=== PATIENT | female | born 1985 | race Caucasian/White ===

== ENCOUNTER → 2018-08-24 | Outpatient (CLI) | payer BC ==
[~2018-08-24] MED LIST: BIAXIN 500MG T500 MG PO; GENERESS FE 0.01 CTB PO; NO HOME MEDICATIONS; NORCO 325 MG-51 TAB PO; NORCO 325 MG-7.1 TAB PO; PRENATAL VITAMI1 TA5 PO; SYNTHROID0.075 MG/T PO; ZITHROMAX 250M250 MG PO
== END ==
LOC: COL.RAD 10:58
DX: R94.5 Abnormal results of liver function studies (principal); R10.11 Right upper quadrant pain

== ENCOUNTER → 2020-08-01 | Outpatient (CLI) | payer BC | LOC: ZCOL.LAB 16:13 | DX: J06.9 Acute upper respiratory infection, unspecified (principal); J30.2 Other seasonal allergic rhinitis; Z20.828 Contact with and (suspected) exposure to other viral communicable diseases ==

== ENCOUNTER 2021-09-24 20:23 | Emergency (ER) | payer BC ==
[~2021-09-24] VITALS: Ht 165.1 cm; Wt 104.5 kg
[2021-09-24 21:21] LABS: BASO % 0.1 % (0.0-2.0); EOS % 0.3 % (0-4.0); GRAN # 10.5 K/mm3 (1.4-6.5); GRAN % 87.9 % (42.2-75.2); HEMOGLOBIN 12.7 g/dl (12.5-16.0); MEAN CELL VOLUME 91 fl (80.0-100.0); MEAN CORPUSCULAR HEMOGLOBIN 32 pg (27.0-31.0); MEAN CORPUSCULAR HGB CONC 35 g/dl (33.0-37.0); MEAN PLATELET VOLUME 10.2 fl (7.4-10.4); MONO # 0.4 K/mm3 (0.1-0.6); MONO % 3.3 % (1.7-9.3); PLATELET COUNT 224 K/mm3 (130-400)
[2021-09-24 21:22] LABS: HEMATOCRIT 36.5 % (37.0-47.0)
[2021-09-24 21:41] LABS: CALCIUM 9.2 mg/dL (8.4-10.2); CREATININE, serum 0.85 mg/dL (0.57-1.11); POTASSIUM 3.7 mmol/L (3.5-4.5); TOTAL PROTEIN 7.8 gm/dL (6.2-8.1)
[2021-09-24 22:18] LABS: COLLECTION METHOD CLEAN CATCH
[2021-09-24 22:25] LABS: MUCOUS Present /lpf; PH 5 (5-8); SQUAMOUS EPITHELIAL 0-2 /hpf; URINE APPEARANCE Clear; URINE BACTERIA None Seen /hpf; URINE BILIRUBIN Negative (NEGATIVE); URINE BLOOD Negative (NEGATIVE); URINE COLOR Yellow; URINE GLUCOSE Negative (NEGATIVE); URINE KETONE Negative (NEGATIVE); URINE LEUKOCYTE ESTERASE Trace (NEGATIVE); URINE NITRATE Negative (NEGATIVE); URINE PROTEIN(semi-quant) Negative (NEGATIVE); URINE RBC 0-2 /hpf; URINE UROBILINOGEN Negative (NEGATIVE)
[2021-09-24 23:34] LABS: AMYLASE 43 U/L (25-125); LIPASE 20 U/L (8-78)
[2021-09-25] MEDS ORDERED: OMNICEF 300MG300 MG PO (01:09)
[2021-09-25] MEDS ORDERED: ZOFRAN ODT8 MG PO (02:03)
[2021-09-25 03:10] VITALS: BP 160/82; PULSE 79; TEMP 98.4
== END 2021-09-25 03:10 | disposition home or self-care (01) ==
LOC: COL.ER 20:23
PROVIDERS: Nurse Practitioner Family
DX: J18.1 Lobar pneumonia, unspecified organism (principal); Z88.2 Allergy status to sulfonamides; Z20.822 Contact with and (suspected) exposure to COVID-19
CPT/HCPCS: J0696; J1885; J2405; J7030; Q9967